=== PATIENT | male | born 1950 | race Caucasian/White ===

== ENCOUNTER 2017-03-21 18:00 | Emergency (ER) | payer MEDICARE, OTHER ==
[2017-07-07] MEDS ORDERED: XANAX1 MG PO (17:36)
[2017-07-07] MEDS ORDERED: NORCO1 TAB PO (17:36)
[2017-07-07] MEDS ORDERED: ZESTORETIC1 TA1 PO (17:37)
[2017-07-07] MEDS ORDERED: INDAPAMIDE1.25 MG PO (17:39)
[2017-07-07] MEDS ORDERED: PRILOSEC40 MG PO (17:40)
[2017-07-07] MEDS ORDERED: AMIT100 PO (17:40)
[2017-07-07] MEDS ORDERED: ASABAYER PO (17:41)
[2017-07-07] MEDS ORDERED: AFRIN15 NAS (17:42)
[2017-07-07] MEDS ORDERED: REFRESH OPH SO0.3 ML OPH (17:44)
== END 2017-03-21 18:08 | disposition home or self-care (01) ==
LOC: ER 18:00
DX: M79.661 Pain in right lower leg (principal); I10 Essential (primary) hypertension; Z86.73 Personal history of transient ischemic attack (TIA), and cerebral infarction without residual deficits; Z88.5 Allergy status to narcotic agent; Z88.8 Allergy status to other drugs, medicaments and biological substances; W19.XXXA Unspecified fall, initial encounter
CPT/HCPCS: 73590-RT; 99283; A9270-GY